=== PATIENT | female | born 2000 | race Caucasian/White ===

== ENCOUNTER 2018-04-18 12:16 | Inpatient (IN) ==
[2018-04-18] MEDS ORDERED: ONDANSETRON 4 MG/2 ML VIAL IV PRN (12:55)
[2018-04-18] MEDS ORDERED: BUTORPHANOL 2 MG/ML VIAL IV PRN (12:55)
[2018-04-18] MEDS ORDERED: MEPERIDINE 50 MG/1 ML VIAL IV PRN (12:55)
[2018-04-18 13:26] LABS: Basophils % 0.2 % (0.0-0.8); Eosinophils % 0.2 % (0.00-10.9); Hematocrit 31.4 VOL% (35.7-47.0); Hemoglobin 9.8 GM/DL (12.0-16.0); Immature Granulocytes % 0.7 %; Immature Granulocytes Absolute 0.04 #; Lymphocytes # 1.4 10*3/uL (1.4-4.0); Lymphocytes % 25.3 % (21.3-54.2); Mean Corpuscular HGB Conc 31.2 GM/DL (32-36); Mean Corpuscular Hemoglobin 25 PG (27-34); Mean Corpuscular Volume 79.9 FL (87-102); Mean Platelet Volume 12.3 FL (9.6-12.0); Monocytes # 0.3 10*3/uL (0.11-0.8); Monocytes % 5.6 % (1.7-12.7); Neutrophils # 3.8 10*3/uL (1.4-7.4); Platelet Count 175 T/CUMM (130-400); Red Blood Count 3.93 MC/CUMM (3.8-5.5); Red Cell Distribution Width 14.9 % (9.3-17.3); White Blood Count 5.5 T/CUMM (4-12)
[2018-04-18] MEDS: LACTATED RINGERS 1,000 ML IV SCH ×2 (13:55→17:07)
[2018-04-18] MEDS ORDERED: OXYTOCIN/LR 20 UNIT/1,000 ML BAG IV SCH (22:00)
[2018-04-18] MEDS ORDERED: LACTATED RINGERS 1,000 ML IV ONE (22:24)
[2018-04-18] MEDS ORDERED: FAMOTIDINE 20 MG/2 ML VIAL IV ONE (22:24)
[2018-04-18] MEDS ORDERED: hydrOXYzine HCL 25 MG/1 ML VIAL IM PRN (22:24)
[2018-04-18] MEDS ORDERED: ePHEDrine 50 MG/ML AMP IV PRN (22:24)
[2018-04-18] MEDS ORDERED: CITRIC ACID/SODIUM CITRATE 30 ML UDCUP PO ONE (22:24)
[2018-04-18] MEDS ORDERED: PROMETHAZINE 25 MG/1 ML VIAL IM ONE (22:24)
[2018-04-18] MEDS ORDERED: diphenhydrAMINE 50 MG/1 ML VIAL IV PRN ×2 (22:24)
[2018-04-18] MEDS ORDERED: fentaNYL 2 MCG/ROPIV 0.2% EPID 150 ML EPIDURAL SCH (22:30)
[2018-04-19 00:42] LABS: Apearance,Urine Slightly Hazy (Clear); Bacteria,Urine Occasional /HPF (Few); Bilirubin,Urine Negative (Negative); Blood, Urine Small mg/dL (Negative); Glucose,Urine (UA) Negative (Negative); Hyaline Casts,Urine 2 /LPF (0-3); Ketones,Urine 80 mg/dL (Negative); Mucus,Urine Many /LPF (Occasional); Nitrite,Urine Negative (Negative); Protein,Urine Negative; RBC,Urine 4 /HPF (0-4); Squamous Epithelial Cell,Urine Occasional /HPF (0-10); Urine Color Yellow (Yellow); Urine Specific Gravity 1.013 (1.001-1.035); WBC,Urine 4 /HPF (0-6)
[2018-04-19] MEDS: LACTATED RINGERS 1,000 ML IV SCH (06:05)
[2018-04-19] MEDS ORDERED: ceFAZolin 2,000 MG in PREMIX 1 EACH IV ONE (12:40)
[2018-04-19] MEDS ORDERED: CITRIC ACID/SODIUM CITRATE 30 ML UDCUP PO ONE (12:40)
[2018-04-19] MEDS ORDERED: OXYTOCIN/LR 20 UNIT/1,000 ML BAG IV ONE ×2 (12:42→13:00)
[2018-04-19] MEDS ORDERED: LACTATED RINGERS 1,000 ML IV SCH (13:00)
[2018-04-19] MEDS ORDERED: RHO(D) IMMUNE GLOBULIN 300 MCG SYRINGE IM ONE (13:00)
[2018-04-19] MEDS ORDERED: SIMETHICONE CHEW 80 MG TABLET PO PRN (13:00)
[2018-04-19] MEDS ORDERED: ACETAMINOPHEN 325 MG TABLET PO PRN (13:00)
[2018-04-19] MEDS ORDERED: ONDANSETRON 4 MG/2 ML VIAL IV PRN (13:00)
[2018-04-19] MEDS ORDERED: METHYLERGONOVINE 0.2 MG/1 ML AMP ONE (13:30)
[2018-04-19] MEDS ORDERED: METHYLERGONOVINE 0.2 MG/1 ML AMP IM ONE (13:32)
[2018-04-19] MEDS ORDERED: MORPHINE 10 MG/10 ML VIAL ONE (14:22)
[2018-04-19] MEDS ORDERED: PROPOFOL 200 MG/20 ML VIAL IV ONE (14:22)
[2018-04-19] MEDS ORDERED: MIDAZOLAM 2 MG/2 ML VIAL ONE (14:23)
[2018-04-19] MEDS ORDERED: fentaNYL 100 MCG/2 ML VIAL ONE (14:23)
[2018-04-19] MEDS ORDERED: ePHEDrine 50 MG/ML AMP ONE (14:23)
[2018-04-19] MEDS ORDERED: LIDOCAINE MPF 2% /EPI 20 ML VIAL ONE (14:24)
[2018-04-19] MEDS ORDERED: SODIUM BICARBONATE 2.4 MEQ/5 ML VIAL ONE (14:24)
[2018-04-19] MEDS ORDERED: ONDANSETRON 4 MG/2 ML VIAL ONE (14:24)
[2018-04-19] MEDS ORDERED: ACETAMINOPHEN 1,000 MG/100 ML VIAL IV ONE (14:24)
[2018-04-19] MEDS ORDERED: MORPHINE 10 MG/1 ML VIAL IV PRN (14:45)
[2018-04-19] MEDS: ceFAZolin 1,000 MG in SYRINGE 1 EACH IV SCH (20:54)
[2018-04-19] MEDS: DOCUSATE SODIUM 100 MG CAPSULE PO SCH (21:40)
[2018-04-19] MEDS ORDERED: BENZOCAINE 20%/MENTHOL 0.5% SPRAY 56 GM CAN TOP PRN (23:20)
[2018-04-20] MEDS: ceFAZolin 1,000 MG in SYRINGE 1 EACH IV SCH (05:11)
[2018-04-20 06:46] LABS: Basophils % 0.1 % (0.0-0.8); Hematocrit 22.3 VOL% (35.7-47.0); Hemoglobin 7.2 GM/DL (12.0-16.0); Immature Granulocytes % 0.5 %; Immature Granulocytes Absolute 0.06 #; Lymphocytes # 1.4 10*3/uL (1.4-4.0); Lymphocytes % 11.6 % (21.3-54.2); Mean Corpuscular HGB Conc 32.3 GM/DL (32-36); Mean Corpuscular Hemoglobin 25 PG (27-34); Mean Platelet Volume 12.1 FL (9.6-12.0); Monocytes # 0.6 10*3/uL (0.11-0.8); Monocytes % 5.2 % (1.7-12.7); Neutrophils # 9.7 10*3/uL (1.4-7.4); Neutrophils % 82.6 % (38.7-73.9); Platelet Count 110 T/CUMM (130-400); Red Blood Count 2.86 MC/CUMM (3.8-5.5); Red Cell Distribution Width 15.1 % (9.3-17.3); White Blood Count 11.8 T/CUMM (4-12)
[2018-04-20 07:26] LABS: Band Neutrophils 10 % (0-10); Hypochromasia 1+; Lymphocytes 11 % (20-55); Platelet Estimate Decreased; Polychromasia Slight; Segmented Neutrophils 79 % (50-85); Total Cells Counted 100
[2018-04-20] MEDS: MULTIVITAMIN (PRENATAL) TABLET PO SCH (08:47)
[2018-04-20] MEDS: FERROUS SULFATE 325 MG TABLET PO SCH ×2 (08:47→20:58)
[2018-04-20] MEDS: MAGNESIUM HYDROXIDE SUSP 30 ML UDCUP PO PRN ×2 (08:47→20:58)
[2018-04-20] MEDS: DOCUSATE SODIUM 100 MG CAPSULE PO SCH ×2 (08:47→20:58)
[2018-04-20] MEDS: IBUPROFEN 800 MG TABLET PO PRN ×2 (10:38→18:58)
[2018-04-20 17:27] LABS: Basophils % 0.1 % (0.0-0.8); Eosinophils % 0.1 % (0.00-10.9); Hematocrit 24.5 VOL% (35.7-47.0); Hemoglobin 7.5 GM/DL (12.0-16.0); Immature Granulocytes % 0.9 %; Immature Granulocytes Absolute 0.12 #; Lymphocytes # 1.2 10*3/uL (1.4-4.0); Lymphocytes % 8.6 % (21.3-54.2); Mean Corpuscular HGB Conc 30.6 GM/DL (32-36); Mean Corpuscular Hemoglobin 25 PG (27-34); Mean Corpuscular Volume 81.1 FL (87-102); Mean Platelet Volume 12.5 FL (9.6-12.0); Monocytes # 0.7 10*3/uL (0.11-0.8); Monocytes % 5.1 % (1.7-12.7); Neutrophils # 11.6 10*3/uL (1.4-7.4); Neutrophils % 85.2 % (38.7-73.9); Platelet Count 127 T/CUMM (130-400); Red Blood Count 3.02 MC/CUMM (3.8-5.5); White Blood Count 13.6 T/CUMM (4-12)
[2018-04-21] MEDS: IBUPROFEN 800 MG TABLET PO PRN ×2 (07:43→16:22)
[2018-04-21] MEDS: FERROUS SULFATE 325 MG TABLET PO SCH ×2 (09:04→20:37)
[2018-04-21] MEDS: MULTIVITAMIN (PRENATAL) TABLET PO SCH (09:04)
[2018-04-21] MEDS: DOCUSATE SODIUM 100 MG CAPSULE PO SCH ×2 (09:04→20:37)
[2018-04-21] MEDS: MAGNESIUM HYDROXIDE SUSP 30 ML UDCUP PO PRN (20:37)
[2018-04-21] MEDS ORDERED: oxyCODONE/ACETAMINOPHEN 5-325 MG TABLET PO PRN (20:44)
[2018-04-22] MEDS: IBUPROFEN 800 MG TABLET PO PRN ×2 (00:20→11:32)
[2018-04-22] MEDS: MAGNESIUM HYDROXIDE SUSP 30 ML UDCUP PO PRN (09:24)
[2018-04-22] MEDS: MULTIVITAMIN (PRENATAL) TABLET PO SCH (09:24)
[2018-04-22] MEDS: DOCUSATE SODIUM 100 MG CAPSULE PO SCH (09:24)
[2018-04-22] MEDS: FERROUS SULFATE 325 MG TABLET PO SCH (09:24)
[2018-04-22 12:06] VITALS: BP 123/72
== END 2018-04-22 14:02 | disposition home or self-care (01) | DRG 766 ==
LOC: N.LDOUT 12:16 → N.LD 12:19 → N.OB 04-19 16:56
PROVIDERS: ADMIT Obstetrics & Gynecology; ATTEND Obstetrics & Gynecology
PROC: LDCSECT (ICD-10-PCS; 2018-04-19 12:40)

== ENCOUNTER 2018-04-29 15:06 | Inpatient (IN) ==
[2018-04-29] MEDS: LACTATED RINGERS 1,000 ML IV SCH (17:43)
[2018-04-29] MEDS: IBUPROFEN 800 MG TABLET PO PRN (17:44)
[2018-04-29] MEDS ORDERED: LEVOFLOXACIN INJ 500 MG in PREMIX 1 EACH IV SCH (18:00)
[2018-04-29 18:04] LABS: Basophils % 0.2 % (0.0-0.8); Eosinophils % 0.1 % (0.00-10.9); Hematocrit 23.2 VOL% (35.7-47.0); Immature Granulocytes % 1.2 %; Lymphocytes # 1.9 10*3/uL (1.4-4.0); Lymphocytes % 11.8 % (21.3-54.2); Mean Corpuscular HGB Conc 30.2 GM/DL (32-36); Mean Corpuscular Hemoglobin 24 PG (27-34); Mean Corpuscular Volume 80.6 FL (87-102); Mean Platelet Volume 9.3 FL (9.6-12.0); Monocytes # 0.5 10*3/uL (0.11-0.8); Monocytes % 3.3 % (1.7-12.7); Neutrophils # 13.7 10*3/uL (1.4-7.4); Neutrophils % 83.4 % (38.7-73.9); Platelet Count 766 T/CUMM (130-400); Red Blood Count 2.88 MC/CUMM (3.8-5.5); Red Cell Distribution Width 15.3 % (9.3-17.3); White Blood Count 16.4 T/CUMM (4-12)
[2018-04-29 18:19] LABS: Albumin 1.8 G/DL (3.4-5.0); Bilirubin,Total 0.4 MG/DL (0.2-1.0); Calcium 7.9 MG/DL (8.5-10.1); Osmolality,Calculated 271.8 MOS/KG (273-304)
[2018-04-29 18:29] LABS: Apearance,Urine Slightly Hazy (Clear); Bilirubin,Urine Negative (Negative); Blood, Urine Large mg/dL (Negative); Glucose,Urine (UA) Negative (Negative); Ketones,Urine Negative (Negative); Mucus,Urine Occasional /LPF (Occasional); Nitrite,Urine Negative (Negative); Protein,Urine 30 MG/DL; RBC,Urine 6 /HPF (0-4); Squamous Epithelial Cell,Urine Occasional /HPF (0-10); Urine Color Yellow (Yellow); Urine Specific Gravity > 1.060 (1.001-1.035); Urine Urobilinogen < 2.0 EU/DL (0.2-1.0); WBC,Urine 287 /HPF (0-6)
[2018-04-29] MEDS ORDERED: SODIUM CHLORIDE 0.9% 1,000 ML IV PRN (20:28)
[2018-04-29] MEDS: MAGNESIUM HYDROXIDE SUSP 30 ML UDCUP PO PRN (20:32)
[2018-04-29] MEDS: oxyCODONE/ACETAMINOPHEN 5-325 MG TABLET PO PRN (20:32)
[2018-04-30] MEDS: diphenhydrAMINE CAP 25 MG CAPSULE PO PRN ×2 (02:20→20:28)
[2018-04-30 07:48] LABS: Basophils # 0.1 10*3/uL (0.0-0.2); Basophils % 0.4 % (0.0-0.8); Eosinophils # 0.1 10*3/uL (0.0-0.87); Eosinophils % 0.4 % (0.00-10.9); Hematocrit 29.6 VOL% (35.7-47.0); Immature Granulocytes % 1.5 %; Immature Granulocytes Absolute 0.25 #; Lymphocytes # 2.1 10*3/uL (1.4-4.0); Lymphocytes % 12.4 % (21.3-54.2); Mean Corpuscular HGB Conc 32.8 GM/DL (32-36); Mean Corpuscular Hemoglobin 26 PG (27-34); Mean Corpuscular Volume 79.6 FL (87-102); Mean Platelet Volume 9.3 FL (9.6-12.0); Monocytes % 5.8 % (1.7-12.7); Neutrophils # 13.1 10*3/uL (1.4-7.4); Neutrophils % 79.5 % (38.7-73.9); Platelet Count 704 T/CUMM (130-400); Red Cell Distribution Width 14.9 % (9.3-17.3); White Blood Count 16.5 T/CUMM (4-12)
[2018-04-30 07:57] LABS: Red Blood Count 3.72 MC/CUMM (3.8-5.5)
[2018-04-30 07:58] LABS: Hemoglobin 9.7 GM/DL (12.0-16.0)
[2018-04-30] MEDS: oxyCODONE/ACETAMINOPHEN 5-325 MG TABLET PO PRN ×2 (09:15→19:14)
[2018-04-30] MEDS: LACTATED RINGERS 1,000 ML IV SCH (09:18)
[2018-04-30] MEDS: PIPERACILLIN/TAZOBACTAM 3,375 MG in SODIUM CHLORIDE 0.9% 100 ML IV SCH ×2 (09:55→16:58)
[2018-04-30] MEDS: IBUPROFEN 800 MG TABLET PO PRN (15:02)
[2018-04-30] MEDS: MAGNESIUM HYDROXIDE SUSP 30 ML UDCUP PO PRN (19:27)
[2018-05-01] MEDS: oxyCODONE/ACETAMINOPHEN 5-325 MG TABLET PO PRN ×5 (00:29→18:12)
[2018-05-01] MEDS: IBUPROFEN 800 MG TABLET PO PRN ×2 (00:29→20:13)
[2018-05-01] MEDS: PIPERACILLIN/TAZOBACTAM 3,375 MG in SODIUM CHLORIDE 0.9% 100 ML IV SCH ×3 (00:32→18:14)
[2018-05-01] MEDS: diphenhydrAMINE CAP 25 MG CAPSULE PO PRN ×4 (04:42→20:13)
[2018-05-01 06:37] LABS: Basophils # 0.1 10*3/uL (0.0-0.2); Basophils % 0.4 % (0.0-0.8); Eosinophils # 0.1 10*3/uL (0.0-0.87); Eosinophils % 0.5 % (0.00-10.9); Hematocrit 28.1 VOL% (35.7-47.0); Immature Granulocytes % 2.2 %; Immature Granulocytes Absolute 0.44 #; Lymphocytes # 2.5 10*3/uL (1.4-4.0); Lymphocytes % 12.7 % (21.3-54.2); Mean Corpuscular Hemoglobin 26 PG (27-34); Mean Corpuscular Volume 80.5 FL (87-102); Mean Platelet Volume 9.6 FL (9.6-12.0); Monocytes # 1.4 10*3/uL (0.11-0.8); Neutrophils # 15.2 10*3/uL (1.4-7.4); Neutrophils % 77.2 % (38.7-73.9); Platelet Count 748 T/CUMM (130-400); Red Blood Count 3.49 MC/CUMM (3.8-5.5); Red Cell Distribution Width 15.3 % (9.3-17.3); White Blood Count 19.7 T/CUMM (4-12)
[2018-05-01] MEDS: LACTATED RINGERS 1,000 ML IV SCH (13:21)
[2018-05-01] MEDS: VANCOMYCIN INJ 1,000 MG in SODIUM CHLORIDE 0.9% 250 ML IV SCH ×2 (15:51→23:50)
[2018-05-01] MEDS ORDERED: ONDANSETRON 4 MG/2 ML VIAL ONE (20:09)
[2018-05-01] MEDS: ONDANSETRON 4 MG/2 ML VIAL IV PRN (20:14)
[2018-05-02] MEDS: oxyCODONE/ACETAMINOPHEN 5-325 MG TABLET PO PRN ×3 (01:18→22:20)
[2018-05-02] MEDS: PIPERACILLIN/TAZOBACTAM 3,375 MG in SODIUM CHLORIDE 0.9% 100 ML IV SCH ×3 (02:25→17:49)
[2018-05-02 06:15] LABS: Basophils # 0.1 10*3/uL (0.0-0.2); Basophils % 0.4 % (0.0-0.8); Eosinophils # 0.1 10*3/uL (0.0-0.87); Eosinophils % 0.4 % (0.00-10.9); Hemoglobin 9.2 GM/DL (12.0-16.0); Immature Granulocytes % 2.4 %; Immature Granulocytes Absolute 0.49 #; Lymphocytes # 2.4 10*3/uL (1.4-4.0); Lymphocytes % 11.4 % (21.3-54.2); Mean Corpuscular HGB Conc 31.7 GM/DL (32-36); Mean Corpuscular Hemoglobin 26 PG (27-34); Mean Platelet Volume 9.1 FL (9.6-12.0); Monocytes # 1.1 10*3/uL (0.11-0.8); Monocytes % 5.5 % (1.7-12.7); Neutrophils # 16.5 10*3/uL (1.4-7.4); Neutrophils % 79.9 % (38.7-73.9); Platelet Count 770 T/CUMM (130-400); Red Blood Count 3.58 MC/CUMM (3.8-5.5); Red Cell Distribution Width 15.4 % (9.3-17.3); White Blood Count 20.7 T/CUMM (4-12)
[2018-05-02 06:38] LABS: Hypochromasia 1+; Lymphocytes 12 % (20-55); Microcytosis 1+; Segmented Neutrophils 85 % (50-85); Total Cells Counted 100
[2018-05-02 06:39] LABS: Platelet Estimate Increased
[2018-05-02 06:45] LABS: Calcium 8.3 MG/DL (8.5-10.1); Osmolality,Calculated 277.3 MOS/KG (273-304); Potassium 4.4 MMOL/L (3.5-5.1)
[2018-05-02] MEDS: VANCOMYCIN INJ 1,000 MG in SODIUM CHLORIDE 0.9% 250 ML IV SCH ×3 (08:02→23:20)
[2018-05-02] MEDS ORDERED: DIAZEPAM 5 MG TABLET PO STA (09:14)
[2018-05-02] MEDS ORDERED: fentaNYL 100 MCG/2 ML VIAL IV ONE (09:20)
[2018-05-02] MEDS ORDERED: MIDAZOLAM 2 MG/2 ML VIAL IV ONE (09:20)
[2018-05-02 09:37] LABS: INR 2.8
[2018-05-02 09:38] LABS: PT Patient Result 28.2 SECS
[2018-05-02] MEDS ORDERED: SODIUM CHLORIDE 0.9% 1,000 ML IV SCH (12:00)
[2018-05-02 12:16] LABS: INR 1.2; PT Patient Result 12.8 SECS
[2018-05-02] MEDS ORDERED: fentaNYL 100 MCG/2 ML VIAL ONE (12:49)
[2018-05-02] MEDS ORDERED: MIDAZOLAM 2 MG/2 ML VIAL ONE (12:50)
[2018-05-02] MEDS ORDERED: MEPERIDINE 25 MG/1 ML VIAL ONE (14:10)
[2018-05-02] MEDS: ACETAMINOPHEN 500 MG TABLET PO PRN (14:36)
[2018-05-02] MEDS: LACTATED RINGERS 1,000 ML IV SCH (16:05)
[2018-05-02] MEDS: diphenhydrAMINE CAP 25 MG CAPSULE PO PRN (22:20)
[2018-05-03] MEDS: IBUPROFEN 800 MG TABLET PO PRN ×3 (01:22→20:28)
[2018-05-03] MEDS: PIPERACILLIN/TAZOBACTAM 3,375 MG in SODIUM CHLORIDE 0.9% 100 ML IV SCH ×3 (01:23→18:50)
[2018-05-03] MEDS: oxyCODONE/ACETAMINOPHEN 5-325 MG TABLET PO PRN ×4 (04:12→17:30)
[2018-05-03] MEDS: MAGNESIUM HYDROXIDE SUSP 30 ML UDCUP PO PRN (06:22)
[2018-05-03] MEDS: VANCOMYCIN INJ 1,000 MG in SODIUM CHLORIDE 0.9% 250 ML IV SCH ×2 (08:30→16:15)
[2018-05-03 08:39] LABS: Basophils # 0.1 10*3/uL (0.0-0.2); Basophils % 0.4 % (0.0-0.8); Eosinophils # 0.1 10*3/uL (0.0-0.87); Eosinophils % 0.7 % (0.00-10.9); Hematocrit 27.9 VOL% (35.7-47.0); Hemoglobin 8.6 GM/DL (12.0-16.0); Immature Granulocytes % 1.7 %; Immature Granulocytes Absolute 0.25 #; Lymphocytes # 2.8 10*3/uL (1.4-4.0); Lymphocytes % 18.8 % (21.3-54.2); Mean Corpuscular HGB Conc 30.8 GM/DL (32-36); Mean Corpuscular Hemoglobin 26 PG (27-34); Mean Corpuscular Volume 82.8 FL (87-102); Mean Platelet Volume 8.8 FL (9.6-12.0); Monocytes # 0.9 10*3/uL (0.11-0.8); Neutrophils # 10.7 10*3/uL (1.4-7.4); Neutrophils % 72.4 % (38.7-73.9); Platelet Count 810 T/CUMM (130-400); Red Blood Count 3.37 MC/CUMM (3.8-5.5); Red Cell Distribution Width 15.6 % (9.3-17.3); White Blood Count 14.7 T/CUMM (4-12)
[2018-05-03] MEDS: diphenhydrAMINE CAP 25 MG CAPSULE PO PRN ×2 (17:30→21:36)
[2018-05-03] MEDS: MEPERIDINE 25 MG/1 ML VIAL IV PRN (20:32)
[2018-05-03] MEDS: LACTATED RINGERS 1,000 ML IV SCH (20:39)
[2018-05-04] MEDS ORDERED: VANCOMYCIN INJ 1,750 MG in SODIUM CHLORIDE 0.9% 500 ML IV ONE
[2018-05-04] MEDS: oxyCODONE/ACETAMINOPHEN 5-325 MG TABLET PO PRN ×3 (00:21→19:04)
[2018-05-04] MEDS: VANCOMYCIN INJ 1,250 MG in SODIUM CHLORIDE 0.9% 250 ML IV SCH ×3 (00:29→16:08)
[2018-05-04] MEDS: PIPERACILLIN/TAZOBACTAM 3,375 MG in SODIUM CHLORIDE 0.9% 100 ML IV SCH ×3 (02:10→17:34)
[2018-05-04] MEDS: IBUPROFEN 800 MG TABLET PO PRN ×3 (06:32→18:44)
[2018-05-04 08:09] LABS: Basophils # 0.1 10*3/uL (0.0-0.2); Basophils % 0.6 % (0.0-0.8); Eosinophils # 0.2 10*3/uL (0.0-0.87); Eosinophils % 1.2 % (0.00-10.9); Hematocrit 30.3 VOL% (35.7-47.0); Immature Granulocytes Absolute 0.16 #; Mean Corpuscular HGB Conc 29.7 GM/DL (32-36); Mean Corpuscular Hemoglobin 25 PG (27-34); Mean Corpuscular Volume 84.4 FL (87-102); Mean Platelet Volume 9.6 FL (9.6-12.0); Monocytes # 0.8 10*3/uL (0.11-0.8); Neutrophils # 11.4 10*3/uL (1.4-7.4); Neutrophils % 73.2 % (38.7-73.9); Platelet Count 942 T/CUMM (130-400); Red Blood Count 3.59 MC/CUMM (3.8-5.5); Red Cell Distribution Width 15.8 % (9.3-17.3); White Blood Count 15.6 T/CUMM (4-12)
[2018-05-04 08:18] LABS: Calcium 8.3 MG/DL (8.5-10.1); Osmolality,Calculated 271.7 MOS/KG (273-304); Potassium 4.4 MMOL/L (3.5-5.1)
[2018-05-04] MEDS: MAGNESIUM HYDROXIDE SUSP 30 ML UDCUP PO PRN (08:39)
[2018-05-04] MEDS ORDERED: ENOXAPARIN 80 MG/0.8 ML SYRINGE SUBCUT SCH (21:30)
[2018-05-05] MEDS: VANCOMYCIN INJ 1,250 MG in SODIUM CHLORIDE 0.9% 250 ML IV SCH ×3 (00:10→23:37)
[2018-05-05] MEDS: oxyCODONE/ACETAMINOPHEN 5-325 MG TABLET PO PRN ×4 (00:15→18:11)
[2018-05-05] MEDS: PIPERACILLIN/TAZOBACTAM 3,375 MG in SODIUM CHLORIDE 0.9% 100 ML IV SCH ×3 (01:16→18:14)
[2018-05-05 05:12] LABS: Basophils # 0.1 10*3/uL (0.0-0.2); Basophils % 0.6 % (0.0-0.8); Eosinophils # 0.2 10*3/uL (0.0-0.87); Eosinophils % 1.3 % (0.00-10.9); Hematocrit 29.4 VOL% (35.7-47.0); Hemoglobin 8.9 GM/DL (12.0-16.0); Immature Granulocytes % 1.6 %; Immature Granulocytes Absolute 0.23 #; Lymphocytes # 3.3 10*3/uL (1.4-4.0); Lymphocytes % 23.3 % (21.3-54.2); Mean Corpuscular HGB Conc 30.3 GM/DL (32-36); Mean Corpuscular Hemoglobin 26 PG (27-34); Mean Corpuscular Volume 84.5 FL (87-102); Monocytes % 6.9 % (1.7-12.7); Neutrophils # 9.5 10*3/uL (1.4-7.4); Neutrophils % 66.3 % (38.7-73.9); Platelet Count 916 T/CUMM (130-400); Red Blood Count 3.48 MC/CUMM (3.8-5.5); Red Cell Distribution Width 15.8 % (9.3-17.3); White Blood Count 14.3 T/CUMM (4-12)
[2018-05-05 05:33] LABS: Calcium 8.3 MG/DL (8.5-10.1); Osmolality,Calculated 274.5 MOS/KG (273-304); Potassium 4.6 MMOL/L (3.5-5.1)
[2018-05-05] MEDS: ENOXAPARIN 80 MG/0.8 ML SYRINGE SUBCUT SCH ×2 (09:44→22:24)
[2018-05-05] MEDS: IBUPROFEN 800 MG TABLET PO PRN ×2 (09:48→20:17)
[2018-05-05] MEDS ORDERED: VANCOMYCIN INJ 2,000 MG in SODIUM CHLORIDE 0.9% 500 ML IV ONE (15:00)
[2018-05-05] MEDS: ONDANSETRON 4 MG/2 ML VIAL IV PRN (20:53)
[2018-05-05] MEDS: MEPERIDINE 25 MG/1 ML VIAL IV PRN (20:57)
[2018-05-05] MEDS ORDERED: FLUCONAZOLE 200 MG TABLET PO ONE (22:30)
[2018-05-06] MEDS: oxyCODONE/ACETAMINOPHEN 5-325 MG TABLET PO PRN ×2 (01:18→09:26)
[2018-05-06] MEDS: PIPERACILLIN/TAZOBACTAM 3,375 MG in SODIUM CHLORIDE 0.9% 100 ML IV SCH ×3 (01:19→17:29)
[2018-05-06] MEDS: IBUPROFEN 800 MG TABLET PO PRN ×2 (04:41→20:12)
[2018-05-06] MEDS: VANCOMYCIN INJ 1,250 MG in SODIUM CHLORIDE 0.9% 250 ML IV SCH ×3 (06:54→23:42)
[2018-05-06 06:57] LABS: Basophils # 0.1 10*3/uL (0.0-0.2); Basophils % 1.1 % (0.0-0.8); Eosinophils # 0.2 10*3/uL (0.0-0.87); Eosinophils % 1.7 % (0.00-10.9); Hematocrit 29.6 VOL% (35.7-47.0); Immature Granulocytes % 3.8 %; Immature Granulocytes Absolute 0.37 #; Lymphocytes # 2.7 10*3/uL (1.4-4.0); Lymphocytes % 27.8 % (21.3-54.2); Mean Corpuscular HGB Conc 30.4 GM/DL (32-36); Mean Corpuscular Hemoglobin 26 PG (27-34); Mean Corpuscular Volume 83.9 FL (87-102); Monocytes # 0.7 10*3/uL (0.11-0.8); Monocytes % 7.6 % (1.7-12.7); Neutrophils # 5.6 10*3/uL (1.4-7.4); Platelet Count 850 T/CUMM (130-400); Red Blood Count 3.53 MC/CUMM (3.8-5.5); Red Cell Distribution Width 15.8 % (9.3-17.3); White Blood Count 9.6 T/CUMM (4-12)
[2018-05-06] MEDS: ENOXAPARIN 80 MG/0.8 ML SYRINGE SUBCUT SCH ×2 (10:14→21:36)
[2018-05-06] MEDS: ACETAMINOPHEN 500 MG TABLET PO PRN (18:11)
[2018-05-06] MEDS ORDERED: FLUCONAZOLE 100 MG TABLET PO SCH (21:00)
[2018-05-07] MEDS: PIPERACILLIN/TAZOBACTAM 3,375 MG in SODIUM CHLORIDE 0.9% 100 ML IV SCH ×2 (01:23→02:25)
[2018-05-07 05:43] LABS: Basophils # 0.1 10*3/uL (0.0-0.2); Basophils % 0.9 % (0.0-0.8); Eosinophils # 0.1 10*3/uL (0.0-0.87); Eosinophils % 0.9 % (0.00-10.9); Hematocrit 30.7 VOL% (35.7-47.0); Hemoglobin 9.5 GM/DL (12.0-16.0); Immature Granulocytes % 2.7 %; Immature Granulocytes Absolute 0.29 #; Lymphocytes # 2.4 10*3/uL (1.4-4.0); Lymphocytes % 21.9 % (21.3-54.2); Mean Corpuscular HGB Conc 30.9 GM/DL (32-36); Mean Corpuscular Hemoglobin 25 PG (27-34); Mean Corpuscular Volume 80.8 FL (87-102); Mean Platelet Volume 9.2 FL (9.6-12.0); Monocytes # 0.7 10*3/uL (0.11-0.8); Monocytes % 6.3 % (1.7-12.7); Neutrophils # 7.3 10*3/uL (1.4-7.4); Neutrophils % 67.3 % (38.7-73.9); Platelet Count 949 T/CUMM (130-400); Red Cell Distribution Width 15.9 % (9.3-17.3); White Blood Count 10.9 T/CUMM (4-12)
[2018-05-07] MEDS: VANCOMYCIN INJ 1,250 MG in SODIUM CHLORIDE 0.9% 250 ML IV SCH (08:16)
[2018-05-07 08:20] VITALS: BP 116/51
== END 2018-05-07 11:30 | disposition home or self-care (01) | DRG 776 ==
LOC: N.OB 16:35 → INTOOBSV 16:35
PROVIDERS: ADMIT Obstetrics & Gynecology; ATTEND Obstetrics & Gynecology